=== PATIENT | female | born 1945 | race Caucasian/White ===

== ENCOUNTER → 2017-12-11 14:02 | Outpatient (CLI) | payer OTHER, MEDICARE, SELFPAY ==
[2017-12-11 14:37] LABS: Add Manual Diff / Slide Review NO; Basophils Percent Auto 0.7 % (0-2); Eosinophils Percent Auto 2.8 % (2-4); Hematocrit 41.9 % (36-46); Hemoglobin 13.8 g/dL (12.0-16.0); Mean Corpuscular HGB Conc 32.9 % (30-36); Mean Corpuscular Hemoglobin 29.8 PG (26-34); Mean Corpuscular Volume 90.7 fL (80-100); Monocytes Percent Auto 10.1 % (3-14); Neutrophils Absolute Auto 3600 /uL (3000-5900); Neutrophils Percent Auto 65.4 % (50-75); Platelet Count 227 X10^3/uL (150-400); Red Blood Cell Count 4.62 X10^6/uL (4.0-5.2); Red Cell Distribution Width 13.5 % (11.6-14.8); White Blood Cell Count 5.5 X10^3/uL (4.5-11.0)
[2017-12-11 14:53] LABS: Alanine Aminotransferase 35 IU/L (9-52); Albumin 4.9 g/dL (3.5-5.0); Albumin Globulin Ratio 1.7 (1.0-2.8); Alkaline Phosphatase 70 U/L (38-126); Aspartate Aminotransferase 38 IU/L (14-36); BUN Creatinine Ratio 21.3 (6-22); Bilirubin Total 0.4 mg/dL (0.2-1.3); Blood Urea Nitrogen 17 mg/dL (7-17); Calcium 10.2 mg/dL (8.4-10.2); Carbon Dioxide 31 mmol/L (22-32); Chloride 98 mmol/L (98-107); Cholesterol 178 mg/dL (140-199); Estimated Glomerular Filt Rate > 60.0 mL/min (>60); Globulin 2.9 g/dL (1.7-4.1); Glucose 91 mg/dL (80-110); HDL Cholesterol 90 mg/dL (40-60); HEMOLYSIS < 15 (0-50); LDL Cholesterol Calculated 76 mg/dL (<100); Potassium 4.2 mmol/L (3.4-5.1); Sodium 140 mmol/L (137-145); Total Protein 7.8 g/dL (6.3-8.2); Triglycerides 60 mg/dL (35-150)
[2017-12-11 15:22] LABS: Thyroid Stimulating Hormone 2.02 uIU/mL (0.47-4.68)
== END ==
PROVIDERS: PCP Family Medicine; Visit Provider Family Medicine
DX: I10 Essential (primary) hypertension (principal); E78.5 Hyperlipidemia, unspecified
CPT/HCPCS: 36415; 80053; 80061; 84443; 85025

== ENCOUNTER → 2021-10-10 12:13 | Outpatient (CLI) | payer MEDICARE, OTHER, SELFPAY ==
--- NOTE | 2021-10-10 12:18 | DI.MG.S_ITS ---
BILATERAL DIGITAL SCREENING MAMMOGRAM 3D/2D WITH CAD: 10/10/2021 CLINICAL: Routine screening. Family history of breast cancer. Comparison is made to exams dated: 02/16/2017 mammogram, 08/15/2011 mammogram, and 02/28/2010 mammogram - outside location. Both breasts are heterogeneously dense, which may obscure small masses (category c / 51-75% glandular tissue). Current study was also evaluated with a Computer Aided Detection (CAD) system. No significant masses, calcifications, or other findings are seen in either breast. There has been no significant interval change. IMPRESSION: NEGATIVE There is no mammographic evidence of malignancy. A 1 year screening mammogram is recommended. Based on the Tyrer Cuzick model (a risk assessment model) the patient's lifetime risk is 6.0% and her 10 year risk is 5.4%. According to the ACR, ACS, and NCCN guidelines, an annual breast MRI exam along with mammogram is recommended if the patient's lifetime risk is 20% or greater. This exam was interpreted at Station ID: [id number]. NOTE: For mammograms, a report in lay terms will be sent to the patient. Approximately 15% of breast malignancies will not be visualized mammographically. In the management of a palpable breast mass, a negative mammogram must not discourage biopsy of a clinically suspicious lesion. Electronically Signed By: Zita nelson/gonzales:10/10/2021 14:45:08 letter sent: Normal Exam ACR BI-RADS Category 1: Negative [id number]
== END ==
PROVIDERS: PCP Family Medicine; Referring Provider Family Medicine; Visit Provider Family Medicine
DX: Z12.31 Encounter for screening mammogram for malignant neoplasm of breast (principal); Z80.3 Family history of malignant neoplasm of breast
CPT/HCPCS: 77063; 77067

== ENCOUNTER → 2022-04-25 18:21 | Outpatient (CLI) | payer MEDICARE, OTHER, SELFPAY ==
--- NOTE | 2022-04-25 18:28 | DI.MRI.S_ITS ---
PROCEDURE: MR STROKE Pre- and post-contrast brain MRI, non-contrast brain MR angiogram, pre- and postcontrast neck MR angiogram INDICATIONS: Memory and cognitive changes TECHNIQUE: Brain: Noncontrast axial T1 spin echo, axial T2 fast spin echo, sagittal and axial FLAIR, coronal T2 fast spin echo, axial gradient echo, axial diffusion and ADC through the brain. After the administration of contrast, axial 3D VIBE of the cranial vasculature and brain. Brain MRA: Non-contrast 3-D time of flight MR angiogram, with multiple vmntiby-leyqoacns-gmggvpvmbw (MIP) reformats performed. Neck MRA: Axial and sagittal TruFISP through the neck. Coronal dynamic MR angiogram during administration of contrast in the arterial and venous phases, with 3-dimenstional ypftpup-mkobnmwlb-ezmuwbgdmd (MIP) reformats constructed from subtraction images. COMPARISON: None. FINDINGS: Image quality: BRAIN: CSF spaces: Ventricles are normal in size and shape. Basal cisterns are patent. No extra-axial fluid collections. Brain: No intracranial bleeds or mass effects. Saravia-white matter interface is normal. Diffusion weighted images show no acute ischemic insults. Brainstem appears normal. Normal intravascular flow voids are present. No abnormal intracranial enhancement. Skull and face: Calvarial marrow signal is normal. Orbits appear normal. Sinuses: Sinuses and mastoids are clear. BRAIN MR ANGIOGRAM: Anterior circulation: Intracranial internal carotid arteries are normal in size and enhancement. The flow within the paired anterior cerebral arteries is normal and symmetric. The flow within the middle cerebral arteries is normal and symmetric. The anterior communicating artery is seen. No stenoses, occlusions, or aneurysms. Posterior circulation: The visualized portions of the vertebral arteries demonstrate normal caliber, and join to form a normal appearing basilar artery. The flow within the posterior cerebral arteries is normal and symmetric. No stenoses, occlusions, or aneurysms. NECK MR ANGIOGRAM: Carotids: Great vessels demonstrate a conventional anatomy as they arise from the aortic arch. The origins of the common carotid arteries appear patent. The calibers and courses of both common carotid arteries are normal. The bifurcation regions appear normal bilaterally. The internal carotid arteries demonstrate normal course and caliber. Posterior circulation: The origins of the vertebral arteries appear patent. More superior portions of both vertebral arteries demonstrate normal course and caliber, and join to form a normal appearing basilar artery. Miscellaneous: Subclavian arteries appear patent. Pre-contrast images through the neck show no soft tissue abnormalities. IMPRESSION: BRAIN MRI: No acute infarct. No mass. BRAIN MR ANGIOGRAM: No large vessel filling defect. NECK MR ANGIOGRAM: No critical stenosis. Dictated by: Glenn Vann M.D. on 04/27/2022 at 13:25 Approved by: Glenn aVnn M.D. on 04/27/2022 at 13:32
== END ==
PROVIDERS: PCP Family Medicine; Referring Provider Family Medicine; Visit Provider Family Medicine
DX: R41.89 Other symptoms and signs involving cognitive functions and awareness (principal)
CPT/HCPCS: 70548; 70553

== ENCOUNTER → 2023-09-24 15:03 | Outpatient (CLI) | payer MEDICARE, SELFPAY ==
--- NOTE | 2023-09-24 15:04 | DI.MRI.S_ITS ---
PROCEDURE: MR HEAD/BRAIN WO CON INDICATIONS: DEMENTIA TECHNIQUE: Non-contrast axial T1 spin echo, axial T2 fast spin echo, sagittal and axial FLAIR, coronal T2 fast spin echo, axial gradient echo, axial diffusion and ADC through the brain. COMPARISON: None. FINDINGS: Image quality: Excellent. CSF spaces: Ventricles appear symmetric in size and shape for the degree of volume loss. Basal cisterns are patent. No extra-axial fluid collections. Brain: No intracranial bleeds or mass effects. Moderate cerebral volume loss. There is subcortical and periventricular T2 FLAIR hyperintensities. Brainstem appears normal. Diffusion-weighted images show no acute infarct. No chronic ischemic insults. Normal intravascular flow voids are present. Skull and face: Calvarial bone marrow is normal in signal. Bilateral lens replacement. Sinuses: Small mucous retention cyst within the right maxillary sinus. Mastoids are clear. IMPRESSION: 1. No evidence for an acute infarct, hemorrhage or mass lesion. 2. There is moderate cerebral volume loss. 3. There are the matter changes within the subcortical and periventricular white matter. These are likely on the basis of chronic small vessel ischemic changes. Dictated by: Rafa Turcios M.D. on 09/25/2023 at 10:19 Approved by: Rafa Turcios M.D. on 09/25/2023 at 10:34
== END ==
PROVIDERS: PCP Family Medicine; Referring Provider Family Medicine; Visit Provider Family Medicine
DX: F03.90 Unspecified dementia, unspecified severity, without behavioral disturbance, psychotic disturbance, mood disturbance, and anxiety (principal); J34.1 Cyst and mucocele of nose and nasal sinus
CPT/HCPCS: 70551

== ENCOUNTER 2024-05-14 10:11 | Emergency (ER) | payer MEDICARE, SELFPAY ==
[2024-05-14 10:25] VITALS: BP 220/95; PULSE 64; RESP 18; TEMP 37; O2SAT 100
--- NOTE | 2024-05-14 11:20 | ED_ITS ---
HPI - Abdominal Pain General Chief Complaint: Abdominal Pain Stated Complaint: Severe Constipation Time Seen by Provider: 05/14/24 11:03 Source: patient Mode of arrival: Ambulatory History of Present Illness HPI narrative: This is a 78-year-old woman with a history of Alzheimer's per and worsening dementia over the last 2 months who presents with concern for constipation and intermittent abdominal pain for months. Has been states that they had a PCP visit recently but unfortunately they were not able to bring up this issue. He states they are here today only because he was able to convince her to come in not because her symptoms have worsened recently. Patient states that she has problems ?down there pointing to her rectal area and that she frequently has to stick her finger up there to get stool out. states that he recently found out she has been trying to give herself enemas using obny-kcc-jpuzpal oral stool softeners, he states she sometimes puts the medication together on the stove and warmth it up and then tries to insert it into her bum. Patient states she has occasional intermittent abdominal pain and she has been eating less for the last few weeks because she is worried that she has stool buildup in her rectum that has not coming out so she is concerned about continuing to eat normally. She has not had worsening abdominal pain, is having bowel movements that she describes as small and firm and multiple times a day, denies nausea current abdominal pain vomiting flank pain, recent fevers, chills or other symptoms. She acknowledges she has not eating fruits because you tubes as not to do so with constipation. She is eating vegetables and protein such as meat. Her states she is not eating very much. He acknowledges he is not privy to exactly what she she does in the bathroom to try to treat her constipation. He notes separate from the patient when meeting with provider outside the room that he is concerned that her dementia has worsened and he is feeling like he is ?at a loss?. He notes that they are in the process of selling their house here and planning to move in with her children in [place] however he anticipates this will take about 2 months until it will actually happen. He is interested in some help with her. Related Data Home Medications Medication Instructions Recorded Confirmed CA PANTOTHENATE/FOLIC ACID/VIT 1 tab PO BID ##0 05/07/12 (MULTIVITAMIN) Ginkgo Biloba (GINKGO BILOBA) 120 mg PO QDAY ##0 05/07/12 aspirin 81 mg tablet,delayed 81 mg PO QDAY ##0 05/07/12 release Previous Rx's Medication Instructions Recorded BUPROPION HCL (BUDEPRION XL) 300 mg PO QDAY ##90 05/07/12 clonazepam 0.5 mg tablet (Klonopin) 1 - 2 tabs PO QDAYP ##180 05/07/12 estradiol 0.01% (0.1 mg/gram) 1 - 2 gra vaginal HSP ##42.5 05/07/12 vaginal cream (Estrace) fluticasone propionate 50 50 mcg INH BID 90 days #0 doses 05/07/12 mcg/actuation blister powder for inhalation (Flovent Diskus) olmesartan 40 mg tablet (Benicar) 40 mg PO QDAY ##90 05/07/12 potassium chloride 20 mEq 20 meq PO BIDCC 90 days ##0 05/07/12 tablet,extended release(part/cryst) simvastatin 10 mg tablet (Zocor) 10 mg PO HS ##90 05/07/12 triamterene 37.5 1 cap PO HS ##90 05/07/12 mg-hydrochlorothiazide 25 mg capsule (Dyazide) lactulose 10 gram oral packet 10 g PO BID constipation 7 days 05/14/24 #15 ea Allergies Allergy/AdvReac Type Severity Reaction Status Date / Time Erthyromycin Allergy Unknown Rash, Uncoded 05/20/17 12:08 fever, hives Pencillin VK Allergy Unknown Hives Uncoded 05/20/17 12:08 Topical Neomycin Allergy Unknown Redness Uncoded 05/20/17 12:08 and swelling Review of Systems Review of Systems Narrative: See HPI Patient History Social History Smoking Status: Never smoker Smoking Status: Never smoker Exam Narrative Exam Narrative: GENERAL: 78 year old patient appears stated age. Well-developed patient, in mild distress. Slightly rapid, pressured speech. Patient able to answer questions however some of her answers are not logical her description of her concern today specifically the area of her rectum is challenging to obtain as patient seems unable to describe it in a logical way. Is at baseline per . HEAD: Atraumatic. Normocephalic. EYES: Pupils equal round and reactive. Extraocular motions intact. No scleral icterus. No injection or drainage. ENT: Nose without bleeding, purulent drainage. Airway patent. NECK: Trachea midline. Non tender CARDIOVASCULAR: Regular rate and rhythm without murmurs, gallops, or rubs. RESPIRATORY: Clear to auscultation. Breath sounds equal bilaterally. No wheezes, rales, or rhonchi. GASTROINTESTINAL: Abdomen soft, non-tender, nondistended. There is very subtle right lower quadrant tenderness. Negative obturator sign, no pain with percussion negative pain with heel tap. There is no flank tenderness. RECTAL: Patient requested digital exam of rectum, agrees as she has been describing things feel strange ?up there?. Visual exam of the anus and rectal area with polisher balance screwhead present, JAZMYN Thao. There is no tenderness of the buttocks or anus area there is no erythema or swelling noted, a digital exam of the rectum with gel reveals distally a small amount of stool can be felt, no significant stool burden in the rectum and patient has no pain on exam. EXTREMITIES: No edema or joint tenderness. BACK: Nontender without deformity or crepitance. No flank tenderness. NEURO: AOx3. SKIN: No rash or erythema of visible areas Initial Vital Signs Initial Vital Signs: Vital Signs Temperature 98.6 F 05/14/24 10:25 Pulse Rate 64 05/14/24 10:25 Respiratory Rate 18 05/14/24 10:25 Blood Pressure 220/95 H 05/14/24 10:25 Pulse Oximetry 100 05/14/24 10:25 Oxygen Delivery Method Room Air 05/14/24 10:25 Course Orders Ordered: ED Orders 05/14/24 11:18 Consult to [facility] [place] Residential Sales Representative Stat XR acute abdomen series Stat Vital Signs Vital signs: Vital Signs - 8 hr 05/14/24 10:25 Temperature 98.6 F Pulse Rate 64 Respiratory Rate 18 Blood Pressure 220/95 H Pulse Oximetry 100 Oxygen Delivery Method Room Air MDM - Abdominal Pain Differential Diagnosis Differential diagnosis: Likely other (constipation, dementia worsening) Medical Records Attestation: I reviewed the patient's medical records. Imaging Data Abdominal x-ray: My Impression: Agree with Radiology interpretation Radiologist's Impression: [address] [address] XRay Report Signed Patient: Jennifer Cordova MR#: [id number] : 1945 Acct:[id number] Age/Sex: 78 / F Date of Service: 05/14/24 Loc: ED Accession Number: [id number] Procedure: XR acute abdomen series Ordering Provider: Stephenie Jones PA-C PROCEDURE: XR ACUTE ABDOMEN SERIES INDICATIONS: 2 months constipation/intermittent pain TECHNIQUE: One view chest and two views of the abdomen were acquired. COMPARISON: None. FINDINGS: Surgical changes and devices: None. Chest: Lungs are clear. Heart size is normal. No pleural effusions. No pneumoperitoneum. Abdomen: Bowel gas pattern is normal. No suspicious calcifications. Visualized solid organ contours appear normal. Bones: No suspicious bony lesions. IMPRESSION: No acute abnormality. Moderate fecal debris throughout the colon No obstruction Approved by: Edgar Oconnell M.D. on 05/14/2024 at 11:51 MDM Narrative Medical decision making narrative: This is a 78-year-old woman with a history of Alzheimer's dementia her and chronic constipation and intermittent mild abdominal pains presenting today because has been was able to convince her to come in. No specific worsening of symptoms recently although has been is concerned about her Alzheimer's dementia progressing. He is having difficulty managing her convincing her to come in to doctor's appointments and recently discovered that she has been attempting to self administer enemas using vdql-zfp-fznvcxe constipation medications. Patient does appear to be in a fairly advanced state of dementia/Alzheimer's. She is able to answer many questions however she clearly is not thinking very logically and declining to take oral medications orally. Social work is consulted and meets with the patient and who agree to have home health come out. I think this will be valuable as they are not moving into live with family for likely a couple of months and they have no family locally. Patient is exam was not concerning for infectious process or acute intra-abdominal pathology. No labs were obtained today. X-ray was obtained for further evaluation which showed moderate stool burden present in the colon. Digital exam of the rectum showed no significant stool burden. I think it was likely that the patient is fixated on the idea of constipation and stool being present in her rectum and has been chronically disimpacted herself with bowel movements. I do not see strong evidence of constipation based on her exam or x-rays today. However due prescribed lactulose to see if this helps move things forward for her. It was also concerning that she has been eating a little less for the last few weeks because she is worried about being constipated. Again I think this is likely related to her progression of dementia. Encouraged the to follow up closely with their PCP and have her seen again and re-evaluated to see how things are going with medication changes. They were both advised that she should abstain from using oral medications rectally. Return precautions provided, follow-up plan discussed, all questions answered. Discharge Plan Departure Patient Disposition: Home Clinical Impression: Constipation Qualifiers: Constipation type: unspecified constipation type Qualified Code(s): K59.00 - Constipation, unspecified Activity Restrictions/Additional Instructions: *You have been diagnosed with [mild constipation] *What to do: *Please continue to take your regular medications as directed. [1 ] New medication prescriptions sent to your pharmacy: [Lactulose] [ ] New medication written as a paper prescription [ ] No new medications given *Please follow up with your primary care provider in 2-3 days, call for an appointment. Let them know you were seen in the Emergency Department and that we ask that you be seen in follow up. We will electronically transmit a record of today's note if your PCP is in our system. Your x-ray and exam today suggest that you have mild constipation, you do have some stool burden present but it was not severe. It sounds like you have been taking a number of ov bg-efm-pjzbkhy medications for constipation in an atypical way. I would recommend that you try taking the medication I prescribed today, this is called lactulose, for up to 7 days until you feel you are getting improvement with your stooling. You should also take sgyd-zzn-sqelzlk Metamucil daily and make sure that you are eating fruits and vegetables and minimize large intake of things like meat or breads as this can cause more constipation. I strongly encourage you to follow up with your primary care provider as well. I would advise you to refrain from using any oral constipation medications rectally. Our social sciences lecturer also met with you today and is setting you up with some home health visits. I hope this will be helpful for you until you get settled with your family in [place]. *If you do not have a primary care provider please contact the [facility] Resource line at [phone]. They will ask some questions about your medical history and help get you set up with a doctor in the community. *Return to Emergency Department if you should have any new, worsening or concerning symptoms, such as [fever greater than 101 F, shaking chills, worsening pain, persistent vomiting or other bothersome symptoms] Prescriptions: New lactulose 10 gram packet 10 g PO BID 7 Days Qty: 15 0RF No Action CA PANTOTHENATE/FOLIC ACID/VIT (MULTIVITAMIN) 1 tab PO BID Qty: 0 aspirin 81 MG tablet,delayed release (DR/EC) 81 mg PO QDAY Qty: 0 Ginkgo Biloba (GINKGO BILOBA) 120 mg PO QDAY Qty: 0 fluticasone propionate [Flovent Diskus] 50 MCG blister with device 50 mcg INH BID 90 Days Qty: 0 2RF simvastatin [Zocor] 10 MG tablet 10 mg PO HS Qty: 90 2RF potassium chloride 20 MEQ tablet,ER particles/crystals 20 meq PO BIDCC 90 Days Qty: 0 2RF olmesartan [Benicar] 40 MG tablet 40 mg PO QDAY Qty: 90 2RF BUPROPION HCL (BUDEPRION XL) 300 mg PO QDAY Qty: 90 2RF clonazepam [Klonopin] 0.5 MG tablet 1 - 2 tabs PO QDAYP Qty: 180 1RF estradiol [Estrace] 0.01 % cream 1 - 2 gra Vaginal HSP Qty: 42.5 2RF triamterene-hydrochlorothiazid [Dyazide] 37.5 MG/25 MG capsule 1 cap PO HS Qty: 90 2RF Referrals: Gibran Arrieta MD [Primary Care Provider] - Stand Alone Forms: Patient Portal/API/Survey
[2024-05-14 13:59] VITALS: BP 197/88; PULSE 67; RESP 16; O2SAT 100
--- NOTE | 2024-05-14 14:03 | CM.SWNOTE ---
ED BINDING PRINTER Assessment Note: Pt is a 78yo female, resident of [place], is seen in the ED for severe constipation. Pt has a hx of Dementia. Pt lives in a house with her , Jamie. Pt's Primary Care Provider is Dr. Gibran Arrieta and insurance is [facility] [employer]. Reviewed chart and discussed with multidisciplinary team pt's medical status and initial discharge needs. BINDING PRINTER consulted for possible home health referral; per provider, there is no severe impaction in bowels and it is concerning if this is a symptom of pt's progressing dementia. Per provider, it is reported by that they are in the process of selling their home to move to [place] to be closer to family support. BINDING PRINTER entered room to meet with patient, introduced self and role. Present in the room is pt's . Pt was found in bed, alert and oriented, found to be elevated in affect, speaking rapidly. BINDING PRINTER discussed recommendation for possible home health, further support for pt as she recovers. Initially, pt was reluctant to home health referral but after discussion and education, pt and are agreeable with plans for home health referral. Pt and deny a preference for agency. Pt and discuss plans to follow up with pt PCP as well. BINDING PRINTER reviews this with ED provider Stephenie Jones PA-C who indicates agreement and understanding, signs orders for home health consult. BINDING PRINTER sends referral to [facility] (RN, LAKEISHA Aide, BINDING PRINTER) who services pt home location. BINDING PRINTER provides [facility]let to pt prior to discharge for more information. Plan: Pt to discharge home with spouse to transport, will follow with PCP and [facility] referral. MOHAMUD Diallo
--- NOTE | 2024-05-16 14:14 | CM.SWNOTE ---
ED PRODUCE TEAM LEAD Follow Up: ED PRODUCE TEAM LEAD sent referral to [facility]. After review, it is reported that pt has been accepted for home health services (RN, HH Aide, and PRODUCE TEAM LEAD). [facility] to follow up with pt and pt for coordination of services. Dara Thomas, DIET CLERK
== END 2024-05-14 14:03 | disposition home or self-care (01) ==
PROVIDERS: Emergency Provider Student in an Organized Health Care Education/Training Program; PCP Family Medicine
DX: K59.00 Constipation, unspecified (principal); R10.9 Unspecified abdominal pain
CPT/HCPCS: 74022; 99281; 99283